=== PATIENT | male | born 2000 | race Caucasian/White ===

== ENCOUNTER 2021-01-13 11:31 | Emergency (ER) | payer BC, SELFPAY ==
[2021-01-13 11:34] VITALS: BP 118/74; PULSE 106; RESP 18; TEMP 36.6; O2SAT 100; BMI 17.2
--- NOTE | 2021-01-13 11:44 | ECG_ITS ---
[facility] Test Date: 2021-01-13 Pat Name: Jonah Williamson Department: Room: Gender: Male Building Architect: : 2000 Requested By: Cristal Caldwell Order Number: [id number] Tabor MD: Micaela Hoff M.D. Measurements Intervals [place] Rate: 95 P: -35 MS: 142 QRS: 85 QRSD: 81 T: 57 QT: 336 QTc: 424 Interpretive Statements ECTOPIC ATRIAL RHYTHM WITH PAC's MINIMAL ST DEPRESSION [0.025+ mV ST DEPRESSION] No previous ECG available for comparison Electronically Signed On 01-13-2021 17:56:08 TELEMETRY MONITOR by Micaela Hoff M.D. [id number]
--- NOTE | 2021-01-13 11:44 | XRR_ITS ---
PROCEDURE INFORMATION: Exam: XR Chest Exam date and time: 01/13/2021 11:44 AM Age: 20 years old Clinical indication: Other: Palpitations; Additional info: Chest pain TECHNIQUE: Imaging protocol: XR of the chest. Views: 1 view. COMPARISON: No relevant prior studies available. FINDINGS: Lungs: Unremarkable. No consolidation. Pleural spaces: Unremarkable. No pleural effusion. No pneumothorax. Heart/Mediastinum: Unremarkable. No cardiomegaly. Bones/joints: Unremarkable. XR/XR chest 1V portable [id number] IMPRESSION: No acute findings. Radiation Dose CTDIVOL = (mGy): DLP = (mGy-cm)
--- NOTE | 2021-01-13 11:47 | PC.NURSE ---
EKG completed in triage, given to CAMERON GIMENEZ. surgical orderly aware.
--- NOTE | 2021-01-13 12:05 | PC.NURSE ---
Pt not in room.
[2021-01-13 12:12] VITALS: BP 126/73; PULSE 91; RESP 15; O2SAT 100
--- NOTE | 2021-01-13 12:22 | ED_ITS ---
HPI - General Adult General: Chief complaint: Chest Pain Stated complaint: FAST HEART RATE, CP Time Seen by Provider: 01/13/21 12:04 History of Present Illness: HPI narrative: CC: Palpitations HPI: [20]yo patient w/ hx of prior stress test from 2015 presenting to the ED new onset palpitations that yesterday night lasting for 15 minutes with associated light-headedness. Has no family hx of cardiac diseases, no recent illicit drug use. Denies fever/chill, chest pain, dyspnea abdominal complaints, diarrhea, dehydration, hematuria/hemoptysis, or other sources of bleeding. No recent immobilization/surgery/travel or hx of VTEs in the past. Of note, patient had a stress test reported 16 that was abnormal. 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 Only other prior episode of palpitatoin was during . Onset: 11 hrs ago Duration: once Location: home Severity: mild/moderate Review of Systems Narrative: Constitutional: No fever, no chills. HEENT: No vision changes CV: No chest pain, +palpitations PULM: No cough, no dyspnea. GI: No abdominal pain, no N/V/D. : No dysuria MSKEL: No edema SKIN: No new rashes, no lesions. NEURO: No headache, no focal weakness. HEME: No visible bruises PSYCH: Normal mood Physical Exam Narrative: EXAM NARRATIVE: Head: Atraumatic Eyes: PERRL, conjunctiva without injection ENT: Mucous membrane moist NECK: Supple without lymphadenopathy LUNGS: CTA CV: Regular tachycardia, 2+ UE radial pulses, cap refill < 2s ABDOMEN: Soft, nontender EXTREMITY: Normal ROM SKIN: No rash or erythema NEURO: Awake and alert. No focal motor deficits. Mental status: AAOx3, no focal weakness PSYCH: Normal mood and affect. Course Vital Signs: Vital signs: Vital Signs Temperature 98.7 F 01/13/21 13:54 Pulse Rate 86 01/13/21 13:54 Respiratory Rate 18 01/13/21 13:54 Blood Pressure 123/70 01/13/21 13:54 Pulse Oximetry 98 01/13/21 13:54 MDM - General Adult MDM Narrative: Medical decision making narrative: [20]yo patient w/ hx of anxiety presenting to the ED with a new onset palpitations lasting for 15 minutes yesterday night. NO associated exertional or pleuritic chest pain. No drug use/family hx of cardiac diseases. No associated syncope/light-headedness or risk factors for PE or ACS. On exam, the patient is HDS, AAOX neuro exam intact, lungs clear without signs of volume overload, 2+ radial pulses bilaterally. Given presentation and well-appearance and minimal risk factors, I have no suspicion but will still evaluate for ACS, PTX, PNA, PE, Tamponade, aortic dissection, esophageal rupture, malignant dysrhythmias Workup: XR Chest, ECG, telemetry, CBC, BMP, Magnesium Intervention: PO fluids EKG: Findings: ECG: No overt evidence of STEMI, hyperacute T waves, localizable STD or T wave inversions. No evidence of Brugada?s sign, delta wave, epsilon wave, significantly prolonged QTc, or malignant arrhythmia. No Q waves. Lab Findings: Electrolytes wnl Unlikely to be ACS because of no chest pain, EKG unremarkable, troponin wnl [1:53]On reassessment, the patient was observed in the ER, there were no compl aints of palpitations. ECG, labs, and telemetry observation x 2 hrs negative for any acute findings of dysrhythmia. Patient tolerated PO in the ER and ambulated without any findings of complaints of palpitations. Given no risk factors and family hx, do not suspect malignant dysrhythmia including paroxysmal ventricular tachycardia or fibrillation. I have communicated the findings with the patient who agrees with the plan for outpatient follow up. I will refer the patient to Cardiology should the patient have persistent symptoms. Doubt ACS/PE or other emergent causes of chest pain. No suspicion for aortic dissection given 2+ upper extremity pulses, or tearing pain. No suspicion for PE given no pleuritic chest pain, recent immobilization or surgery hemoptysis, or other VTE risk factors. EKG is non-ischemic. XR normal. I have given patient follow up with our correctional case records supervisor to be seen by Dr. Hoff for Cardiology followup given hx of abnormal stress test from 2015. Patient aware of a call from our correctional case records supervisor to schedule for appointment(s) and verbalizes understanding of the importance of following up. Patient has an appointment with Dr. Jones on Tuesday and have instructed to him to follow-up with Dr. Jones for further evaluation of his symptoms. Disposition: Discharge. Plan for discharge from the hospital with PCP follow up in 24-48 hrs and Cardiology follow up in 1-2 weeks. Given strict return precautions for any worsening symptoms including syncope/fall, chest pain, fever/chill, focal neurological weakness, diaphoresis, dyspnea or any new or concerning findings. Is given strict return precaution any worsening symptoms palpitation, focal weakness, chest pain shortness breath, lightheadedness, loss of consciousness, any new concerning complaints Lab Data: Labs: Lab Results 01/13/21 01/13/21 01/13/21 12:15 12:15 12:15 WBC 7.1 10^3/uL 10^3/ uL (4.0-10.0) RBC 5.04 10^6/uL 10^6 /uL (4.1-5.3) Hgb 14.7 g/dL g/dL (11.7-16.6) Hct 42.1 % % (42.0-52.0) MCV 83.5 fl fl (80-94) MCH 29.2 pg pg (28.0-34.0) MCHC 34.9 g/dL g/dL (30.0-36.0) RDW 12.1 % % (12.1-15.1) Plt Count 243 10^3/cmm 10^3 /cmm (130-400) MPV 12.1 fL H fL (7.4-10.4) Neut % (Auto) 66.1 % % Lymph % (Auto) 23.7 % % [place] % (Auto) 8.3 % % Eos % (Auto) 1.0 % % Baso % (Auto) 0.6 % % Neut # (Auto) 4.71 10^3/uL 10^3 /uL (1.8-7.7) Lymph # (Auto) 1.7 10^3/uL 10^3/ uL (0.8-4.8) [place] # (Auto) 0.6 10^3/uL 10^3/ uL (0.2-0.9) Eos # (Auto) 0.1 10^3/uL 10^3/ uL (0.0-0.8) Baso # (Auto) 0.0 10^3/uL 10^3/ uL (0.0-0.1) Nucleated RBC % (a uto) 0 % % Nucleated RBCs # 0.0 /100WBC /100W BC Sodium 140 mmol/L mmol/L (136-145) Potassium 3.6 mmol/L mmol/L (3.5-5.1) Chloride 104 mmol/L mmol/L (98-107) Carbon Dioxide 21 mmol/L L mmol/ L (22-29) Anion Gap 18.6 (5-19) BUN 10 mg/dL mg/dL (6-20) Creatinine 0.6 mg/dL L mg/dL (0.7-1.2) GFR Calculation 168.5 mL/min H mL /min (90-130) Glucose 93 mg/dL mg/dL (65-115) Calculated Osmolal ity 289 mOsm/kg mOsm/ kg (285-295) Calcium 9.4 mg/dL mg/dL (8.5-10.5) Total Bilirubin 0.3 mg/dL mg/dL (0.15-1.2) AST 12 U/L U/L (0-40) ALT 9 U/L U/L (0-41) Alkaline Phosphata se 81 IU/L IU/L (40-130) Troponin T Baselin e 6 ng/L ng/L (0-15) Total Protein 7.1 g/dL g/dL (6.6-8.7) Albumin 4.9 g/dL g/dL (3.5-5.2) Globulin 2.2 g/dL g/dL (1.3-4.6) TSH 1.76 uIU/mL uIU/m L (0.27-4.20) Discharge Plan Discharge Patient Disposition: Home Clinical Impression: Palpitation Condition: Stable Discharge Orders: Discharge ED (Routine); Ordered 01/13/21 Ordered By: Trung Hoang Discharge Diet: Advance as tolerated Discharge Activity: Resume usual activity Patient Instructions: Heart Palpitations (ED), Near Syncope (ED) Activity Restrictions/Additional Instructions: Our correctional case records supervisor will have you follow-up with Cardiology in the next week. You would be expected to have a phone call with our correctional case records supervisor who will put you on the schedule. Come back to the emergency room to have more palpitation, lightheadedness, nausea/vomiting, or any new extreme complaints. Follow-up with your primary on Tuesday. Coding Level of Care Code ED Roller Skater for Sylvester Spivey
[2021-01-13 12:31] LABS: Basophils % 0.6 %; Eosinophils # 0.1 10^3/uL (0.0-0.8); Hematocrit 42.1 % (42.0-52.0); Hemoglobin 14.7 g/dL (11.7-16.6); Lymphocytes # 1.7 10^3/uL (0.8-4.8); Lymphocytes % 23.7 %; Mean Corpuscular HGB Conc 34.9 g/dL (30.0-36.0); Mean Corpuscular Hemoglobin 29.2 pg (28.0-34.0); Mean Corpuscular Volume 83.5 fl (80-94); Mean Platelet Volume 12.1 fL (7.4-10.4); Monocytes # 0.6 10^3/uL (0.2-0.9); Monocytes % 8.3 %; Neutrophils # 4.71 10^3/uL (1.8-7.7); Neutrophils % 66.1 %; Nucleated Red Blood Cells % 0 %; Platelet Count 243 10^3/cmm (130-400); Red Blood Count 5.04 10^6/uL (4.1-5.3); Red Cell Distribution Width 12.1 % (12.1-15.1); White Blood Count 7.1 10^3/uL (4.0-10.0)
[2021-01-13 13:00] VITALS: BP 123/70; PULSE 80; RESP 18; O2SAT 99
[2021-01-13 13:18] LABS: Troponin(5th) Baseline 6 ng/L (0-15)
[2021-01-13 13:19] LABS: Alanine Aminotransferase 9 U/L (0-41); Albumin Level 4.9 g/dL (3.5-5.2); Alkaline Phosphatase 81 IU/L (40-130); Anion Gap 18.6 (5-19); Aspartate Amino Transferase 12 U/L (0-40); Blood Urea Nitrogen 10 mg/dL (6-20); Calcium 9.4 mg/dL (8.5-10.5); Chloride 104 mmol/L (98-107); Globulin 2.2 g/dL (1.3-4.6); Glucose 93 mg/dL (65-115); Osmolality Calculated 289 mOsm/kg (285-295); Potassium 3.6 mmol/L (3.5-5.1); Sodium 140 mmol/L (136-145); Thyroid Stimulating Hormone 1.76 uIU/mL (0.27-4.20); Total Bilirubin 0.3 mg/dL (0.15-1.2); Total Protein 7.1 g/dL (6.6-8.7)
[2021-01-13 13:27] LABS: Creatinine Clr Calc Pharmacy 148.6773
[2021-01-13 13:33] LABS: Carbon Dioxide 21 mmol/L (22-29); Glomerular Filtration Rate 168.5 mL/min (90-130)
--- NOTE | 2021-01-13 13:33 | PC.NURSE ---
UA collected and sent
--- NOTE | 2021-01-13 13:44 | ECG_ITS ---
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 Measurements Intervals [place] Rate: 88 P: -38 MD: 139 QRS: 87 QRSD: 87 T: 70 QT: 361 QTc: 437 Interpretive Statements SINUS RHYTHM WITH MARKED SINUS ARRHYTHMIA INTERPRETATION BASED ON A DEFAULT AGE OF 38 YEARS No previous ECG available for comparison Electronically Signed On 01-13-2021 17:59:[address] PRODUCTION MANAGER by Micaela Hoff M.D. [id number]
[2021-01-13 13:51] VITALS: O2SAT 98
--- NOTE | 2021-01-13 13:52 | PC.NURSE ---
OH 0.18 QRS 0.06 QT 0.38 SR 82 no CP
[2021-01-13 13:54] VITALS: BP 123/70; PULSE 86; RESP 18; TEMP 37.1; O2SAT 98
--- NOTE | 2021-01-14 09:54 | DCPLANNER ---
statistics manager had message to schedule a follow up appointment for patient with [facility]. statistics manager called the [facility], spoke with Carisa, gave clinic patients information. A follow up appointment was scheduled for January at 10:[address] Hatch. statistics manager called patient and gave patient the appointment information.
--- NOTE | 2021-02-12 14:15 | DCPLANNER ---
Patient had a follow up appointment scheduled with [facility] - patient did attend appointment.
== END 2021-01-13 13:55 | disposition home or self-care (01) ==
PROVIDERS: Physician Assistant; Emergency Provider Emergency Medicine
DX: R00.2 Palpitations (principal)
CPT/HCPCS: 36415; 71045; 80053; 84443; 84484; 85025; 93005; 99284

== ENCOUNTER 2024-01-31 19:15 | Inpatient (IN) | payer BC, SELFPAY ==
[2024-01-31 19:15] VITALS: BP 120/73; PULSE 96; RESP 16; TEMP 36.8; O2SAT 99
[2024-01-31 19:21] VITALS: RESP 18; TEMP 36.6
--- NOTE | 2024-01-31 19:29 | ED.C_ITS ---
HPI - Psych 2 General: Chief Complaint: Psychiatric Symptoms Stated Complaint: SI Time Seen by Provider: 01/31/24 19:18 Source: patient and police Limitations: no limitations History of Present Illness: 23-year-old male is here with suicidal i deations he states that his recently left him causing him severe depression please states that he had a ratchet strap around his neck and was planning to hang himself. He has had no previous psych admissions in the past denies any worsening improving factors does admit to being suicidal Associated symptoms: Reports depression and suicidal ideation Related Data Home Medications Medication Instructions Recorded Confirmed No Known Home Medications 01/29/21 09/30/22 Allergies Allergy/AdvReac Type Severity Reaction Status Date / Time No Known Allergies Allergy Verified 09/30/22 15:24 Review of Systems 2 Const: Denies: fever(s), chills, body aches or change in appetite ENMT: Denies: throat pain or dental pain Card: Denies: chest pain Resp: Denies: dyspnea GI: Denies: abdominal pain, nausea, vomiting or diarrhea Musc: Denies: neck pain or back pain Skin/Breast: Denies: rash Neuro: Denies: headache(s) Psych: Reports: depression and suicidal ideation PFSH ED 2 PFSH: Medical History Chest pain Palpitations Family History Mother CAD (coronary artery disease) Father CAD (coronary artery disease) Family/Other CAD (coronary artery disease) Cancer Dementia Grandmother Diabetes Grandfather Diabetes Denies family history of Clotting disorder Chronic kidney disease (CKD) Suicide Anesthesia complication Bleeding disorder Lung disease Stroke Social History Smoking and tobacco/nicotine status: current every day tobacco/nicotine user Alcohol intake: current Substance/Drug Use: never Physical Exam 2 Const: COMMON NORMALS: no acute distress, patient oriented x3 and healthy appearing HENMT: COMMON NORMALS: normocephalic and atraumatic HEAD & SCALP: n ormocephalic and atraumatic Eye: COMMON NORMALS: conjunctivae normal CONJUNCTIVA: Yes conjunctivae normal Neck/C-Spine: COMMON NORMALS: full ROM and supple Chest: COMMONS NORMALS: normal inspection of the chest Resp: COMMON NORMALS: normal respiratory effort Cardio: COMMON NORMALS: regular rate, regular rhythm and No murmurs present (Cardio) RATE: regular rate RHYTHM: regular rhythm Extremity: COMMON NORMALS: normal to inspection and full ROM Neuro: COMMON NORMALS: patient oriented x3, moves all extremities and no focal motor deficits Psych: COMMON NORMALS: mental status grossly normal, Normal thought process present and cooperative MOOD & AFFECT: Yes depressed mood THOUGHT PROCESS: Normal thought process present THOUGHT CONTENT: Yes Suicidality present Skin: COMMON NORMALS: no rashes or lesions noted and no wounds GENERAL SKIN EXAM: no rashes or lesions noted Course 2 Vital Signs: Vital signs: Vital Signs Temperature 97.9 F 01/31/24 19:21 Respiratory Rate 18 01/31/24 19:21 [facility] - Psych Medical Decision Making Patient presents here with suicidal ideation patient is medically cleared he is on a 96-hour hold will admit to the psych german Medical Records I reviewed the patient's medical records. Lab Data I reviewed the patient's lab results. 01/31/24 19:34 01/31/24 19:34 Laboratory Results WBC 10.89 10^3/uL (3.29-11.43) 01/31/24 19:34 RBC 5.35 10^6/uL (3.85-5.65) 01/31/24 19:34 Hgb 15.40 g/dL (11.27-16.99) 01/31/24 19:34 Hct 45.4 % (37-53) 01/31/24 19:34 MCV 84.9 fl (82-101) 01/31/24 19:34 MCH 28.8 pg (27-33) 01/31/24 19:34 MCHC 33.9 g/dL (30-55) 01/31/24 19:34 RDW 12.2 % (12.1-15.1) 01/31/24 19:34 Plt Count 293 10^3/cmm (157-399) 01/31/24 19:34 MPV 11.6 fL (7.4-10.4) H 01/31/24 19:34 Neut % (Auto) 75.6 % 01/31/24 19:34 Lymph % (Auto) 17.0 % 01/31/24 19:34 [place] % (Auto) 6.6 % 01/31/24 19:34 Eos % (Auto) 0.0 % 01/31/24 19:34 Baso % (Auto) 0.4 % 01/31/24 19:34 Neut # (Auto) 8.24 10^3/uL (1.8-7.7) H 01/31/24 19:34 Lymph # (Auto) 1.9 10^3/uL (0.8-4.8) 01/31/24 19:34 [place] # (Auto) 0.7 10^3/uL (0.2-0.9) 01/31/24 19:34 Eos # (Auto) 0.0 10^3/uL (0.0-0.8) 01/31/24 19:34 Baso # (Auto) 0.0 10^3/uL (0.0-0.1) 01/31/24 19:34 Nucleated RBC % (auto) 0 % 01/31/24 19:34 Nucleated RBCs # 0.0 /100WBC 01/31/24 19:34 No radiology studies performed this visit Discharge Plan Discharge Patient Disposition: Admitted As Inpatient Clinical Impression: Suicidal ideation Condition: Stable Coding Level of Care Code ED Door And Arrival Attendant for Sylvester Spivey
[2024-01-31 19:43] LABS: Basophils % 0.4 %; Hematocrit 45.4 % (37-53); Lymphocytes # 1.9 10^3/uL (0.8-4.8); Mean Corpuscular HGB Conc 33.9 g/dL (30-55); Mean Corpuscular Hemoglobin 28.8 pg (27-33); Mean Corpuscular Volume 84.9 fl (82-101); Mean Platelet Volume 11.6 fL (7.4-10.4); Monocytes # 0.7 10^3/uL (0.2-0.9); Monocytes % 6.6 %; Neutrophils # 8.24 10^3/uL (1.8-7.7); Neutrophils % 75.6 %; Nucleated Red Blood Cells % 0 %; Platelet Count 293 10^3/cmm (157-399); Red Blood Count 5.35 10^6/uL (3.85-5.65); Red Cell Distribution Width 12.2 % (12.1-15.1); White Blood Count 10.89 10^3/uL (3.29-11.43)
[2024-01-31 19:59] LABS: Amphetamines Screen Urine Negative (Negative); Barbiturates Screen Urine Negative (Negative); Benzodiazepines Screen Urine Negative (Negative); Cocaine Screen Urine Negative (Negative); Opiate Screen Urine Negative (Negative); PCP Screen Urine Negative (Negative); THC Screen Urine Negative (Negative)
[2024-01-31 20:11] LABS: Alanine Aminotransferase 8 U/L (0-41); Albumin Level 5.2 g/dL (3.5-5.2); Alcohol Level 18 mg/dL (0-10); Alkaline Phosphatase 91 U/L (40-130); Anion Gap 29.5 (5-19); Aspartate Amino Transferase 19 U/L (0-40); Blood Urea Nitrogen 9 mg/dL (6-20); Carbon Dioxide 21 mmol/L (22-29); Chloride 99 mmol/L (98-107); Creatinine Clr Calc Pharmacy 138.1621; Globulin 2.9 g/dL (1.3-4.6); Glomerular Filtration Rate 117.8 mL/min (90-130); Glucose 95 mg/dL (65-115); Osmolality Calculated 300 mOsm/kg (285-295); Potassium 3.5 mmol/L (3.5-5.1); Salicylate 0.9 mg/dL (3-10); Sodium 146 mmol/L (136-145); Total Bilirubin 0.8 mg/dL (0.15-1.2); Total Protein 8.1 g/dL (6.6-8.7)
[2024-01-31 20:13] LABS: Acetaminophen < 5.0 ug/mL (10-30)
--- NOTE | 2024-01-31 20:38 | PC.NURSE ---
96 HH Pt served with copy of 96 HH by this RN and security. P&Ox3, calm and polite. All questions answered. Pt stated hes never been on a 96 hour hold before and asked if he would have his own bathroom in the NPU.
[2024-01-31 21:09] VITALS: BP 112/72; PULSE 100; RESP 17; TEMP 36.9; O2SAT 98
[2024-01-31 21:21] VITALS: BP 118/24; PULSE 91; RESP 18; O2SAT 99
[2024-01-31 22:00] VITALS: BP 112/72; PULSE 100; RESP 17; TEMP 36.9; O2SAT 98
[2024-02-01 05:38] VITALS: BP 109/79; PULSE 92; RESP 16; TEMP 37.1; O2SAT 98
[2024-02-01] MEDS: nicotine 2 mg Gum BUCCAL ×2 (06:29→20:28)
[2024-02-01 14:00] VITALS: BP 102/65; PULSE 112; RESP 17; O2SAT 100
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
[2024-02-01] MEDS: trazodone 50 mg Tablet PO (20:24)
[2024-02-01 20:42] VITALS: BP 108/71; PULSE 98; RESP 18; TEMP 37.2; O2SAT 96
[2024-02-02 06:00] VITALS: BP 107/56; PULSE 109; RESP 16; TEMP 37.4; O2SAT 98
[2024-02-02] MEDS: nicotine 21 mg Patch 1 PATCH TRANSDERMA (07:41)
[2024-02-02] MEDS: cetylpyridinium Lozenge 1 EACH MUCOUS MEM (12:53)
[2024-02-02 14:00] VITALS: BP 101/71; PULSE 102; RESP 16; TEMP 36.9; O2SAT 98
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
[2024-02-02 14:24] VITALS: BP 101/71; PULSE 102; RESP 16; TEMP 36.9; O2SAT 98
== END 2024-02-02 15:07 | disposition home or self-care (01) | DRG 881 ==
LOC: ER 20:51 → NP 20:59
PROVIDERS: Admitting Provider Psychiatry & Neurology Psychiatry; Emergency Provider Emergency Medicine; PCP Family Medicine; Visit Provider Psychiatry & Neurology Psychiatry
DX: F32.A Depression, unspecified (principal); R45.851 Suicidal ideations; F17.200 Nicotine dependence, unspecified, uncomplicated; Z91.410 Personal history of adult physical and sexual abuse
CPT/HCPCS: 36415; 80053; 80306; 80307; 85025; 97150; 97165; 99285